=== PATIENT | female | born 1990 | race African-American/Black ===

== ENCOUNTER 2021-03-21 07:30 | Inpatient (IN) ==
[2021-03-21] MEDS ORDERED: LR 1000 ML IV 1,000 ML IV ONE (08:42)
[2021-03-21] MEDS ORDERED: ANCEF 1 GRAM IV PREMIX* 2 G/100 ML BAG IV ONE (08:42)
[2021-03-21] MEDS ORDERED: DILAUDID INJ ONE (09:15)
[2021-03-21] MEDS ORDERED: PITOCIN ONE ×2 (09:16→09:35)
[2021-03-21] MEDS ORDERED: NS 1000 ML 2,000 ML ONE (09:16)
[2021-03-21] MEDS ORDERED: NEO-SYNEPHRINE INJ ONE (09:35)
[2021-03-21] MEDS ORDERED: EPHEDRINE SULFATE INJ ONE (09:35)
[2021-03-21] MEDS ORDERED: REGLAN INJ 10 MG VIAL IVP PRN ×2 (10:55→11:19)
[2021-03-21] MEDS ORDERED: PHENERGAN INJ 25 MG IM PRN (10:55)
[2021-03-21] MEDS ORDERED: BARHEMSYS INJ IVP PRN (10:55)
[2021-03-21] MEDS ORDERED: DILAUDID INJ IVP PRN (10:55)
[2021-03-21] MEDS ORDERED: ZOFRAN INJ 4 MG VIAL IVP PRN ×2 (10:55→11:19)
[2021-03-21] MEDS ORDERED: BENADRYL INJ 50 MG VIAL IVP PRN ×2 (10:55→11:19)
[2021-03-21] MEDS ORDERED: MYLICON TAB 80 MG CHEW PO PRN (11:19)
[2021-03-21] MEDS ORDERED: PERCOCET TAB 5/325 MG PO PRN (11:19)
[2021-03-21] MEDS ORDERED: TORADOL 30 MG VIAL IVP PRN (11:19)
[2021-03-21] MEDS ORDERED: ADACEL or BOOSTRIX TDaP VACCINE IM ONE (11:19)
[2021-03-21] MEDS ORDERED: D5 1/2 NS 1000 ML 1,000 ML with PITOCIN 20 UNITS IV SCH ×2 (11:19)
[2021-03-21] MEDS ORDERED: NARCAN INJ IVP PRN ×2 (11:19)
[2021-03-21] MEDS: TORADOL 30 MG VIAL IVP SCH ×3 (11:54→20:17)
[2021-03-21] MEDS: ZOFRAN INJ 4 MG VIAL IVP SCH ×2 (11:54→19:55)
[2021-03-21] MEDS ORDERED: NS IRRIGATION* 1,000 ML ONE (14:13)
[2021-03-21] MEDS ORDERED: ANCEF VIAL 1 GRAM ONE (15:25)
[2021-03-21] MEDS ORDERED: ANCEF VIAL 1 GRAM IVP ONE (16:00)
[2021-03-22] MEDS: ZOFRAN INJ 4 MG VIAL IVP SCH (04:10)
[2021-03-22] MEDS: TORADOL 30 MG VIAL IVP SCH ×3 (04:10→09:01)
[2021-03-22] MEDS: MOTRIN TAB 800 MG PO PRN ×2 (04:11→09:03)
[2021-03-22 06:18] LABS: HEMATOCRIT 32.2 % (36.0-47.0); HEMOGLOBIN 10.6 g/dL (12.0-16.0)
--- NOTE | 2021-03-22 07:49 | NOTE.PROBC ---
Progress Note OB-C/S Subjective Data Subjective: No complaints, decreased lochia. Tolerating regular diet. No N/V. Ambulating well. Panchal draining well. Pain under good control with Toradol. Objective Data Result Diagrams: 03/22/21 04:21 Objective Data: CV= RRR no MRG Lungs=CTA Bilaterally Abd=(+) BS, soft, ND, appropriately tender near incision. Bandage removed. Incision clean/dry/intact, no erythema, no bleeding, no discharge. Dermabond/St itches intact. Fundus firm/NT/ at 3 cm below umbilicus. Ext= No edema, NT, No Cords. Graduated Compression Stockings/Sequential Compression Devices Bilaterally. Plan (1) S/P repeat low transverse : Plan: D/C to home today and f/u in the off in three days (Sunday)
[2021-03-22] MEDS ORDERED: PRENATAL PLUS PO SCH (09:00)
[2021-03-22 12:50] VITALS: BP 128/68
== END 2021-03-22 12:48 | disposition home or self-care (01) | DRG 788 ==
LOC: LD 08:13 → OBS 11:11
PROVIDERS: ADMIT Obstetrics & Gynecology; ATTEND Obstetrics & Gynecology
DX: Z3A.37 37 weeks gestation of pregnancy; O34.211 Maternal care for low transverse scar from previous cesarean delivery; Z37.0 Single live birth; O13.3 Gestational [pregnancy-induced] hypertension without significant proteinuria, third trimester; N85.8 Other specified noninflammatory disorders of uterus